=== PATIENT | male | born 1960 | race Caucasian/White ===

== ENCOUNTER 2020-06-30 14:24 | Emergency (ER) | payer OTHER ==
[2020-06-30] MEDS ORDERED: KETOROLAC TROMETHAMINE 30 MG/1 ML VIAL IVPUSH ONE (14:44)
[2020-06-30] MEDS ORDERED: SODIUM CHLORIDE 1,000 ML IV STA (14:44)
[2020-06-30] MEDS ORDERED: METOCLOPRAMIDE HCL INJECTION 10 MG/2 ML VIAL IVPUSH ONE (14:44)
[2020-06-30 14:45] VITALS: BP 124/88; PULSE 67; TEMP 97.6; BMI 27.4
[2020-06-30] MEDS ORDERED: METOCLOPRAMIDE HCL INJECTION 10 MG/2 ML VIAL ONE (15:05)
[2020-06-30] MEDS ORDERED: KETOROLAC TROMETHAMINE 30 MG/1 ML VIAL ONE (15:06)
== END 2020-06-30 17:00 | disposition home or self-care (01) ==
LOC: JERFT 14:24
PROC: 3E033NZ Introduction of Analgesics, Hypnotics, Sedatives into Peripheral Vein, Percutaneous Approach (ICD-10-PCS; principal; 2020-06-30)
PROC: 3E033GC Introduction of Other Therapeutic Substance into Peripheral Vein, Percutaneous Approach (ICD-10-PCS; 2020-06-30)
PROC: 3E0337Z Introduction of Electrolytic and Water Balance Substance into Peripheral Vein, Percutaneous Approach (ICD-10-PCS; 2020-06-30)
DX: R51.9 Headache, unspecified (principal)
CPT/HCPCS: 96361; 96374; 96375; 99285-25

== ENCOUNTER 2020-07-06 18:44 | Emergency (ER) | payer OTHER ==
[2020-07-06 18:49] VITALS: BP 146/93; PULSE 85; TEMP 98.8; BMI 27.4
[2020-07-06] MEDS ORDERED: KETOROLAC TROMETHAMINE 15 MG/ML VIAL IVPUSH ONE (20:02)
[2020-07-06] MEDS ORDERED: LACTATED RINGERS SOLUTION 1000 ML INFUS.BAG IV ONE (20:02)
[2020-07-06] MEDS ORDERED: KETOROLAC TROMETHAMINE 15 MG/ML VIAL ONE (20:33)
[2020-07-06 20:42] LABS: BASO % 0.8 % (0-2.0); EOS % 1.2 % (0-4.5); HEMATOCRIT 47.4 % (35.4-49); HEMOGLOBIN 16.3 GM/dL (11.7-16.9); LYMPH % 21.9 % (8-40); MCH 33.7 pg (25.7-33.7); MCHC 34.4 g/dl (32.0-35.9); MEAN CELL VOLUME 98.1 fl (80-96); MONO % 6.1 % (3.8-10.2); PLATELET COUNT 180 K/MM3 (134-434); RBC 4.83 M/mm3 (4.00-5.60); RDW 12.6 % (11.9-15.9); WHITE BLOOD COUNT 7.3 K/mm3 (4.0-10.0)
[2020-07-06 20:59] LABS: POTASSIUM 4.3 mmol/L (3.5-5.1)
[2020-07-06 21:01] LABS: ALBUMIN 4.2 g/dl (3.4-5.0); BLOOD UREA NITROGEN 11.1 mg/dL (7-18)
[2020-07-06 21:04] LABS: CREATININE 1.1 mg/dL (0.55-1.3)
[2020-07-06 21:06] LABS: BILIRUBIN,TOTAL 0.2 mg/dL (0.2-1); TOT PROT 7.5 g/dl (6.4-8.2)
== END 2020-07-06 21:18 | disposition home or self-care (01) ==
LOC: JER 18:44
PROC: 3E0333Z Introduction of Anti-inflammatory into Peripheral Vein, Percutaneous Approach (ICD-10-PCS; principal; 2020-07-06)
DX: R51.9 Headache, unspecified (principal)
CPT/HCPCS: 36415; 70450-TC; 80053; 85025; 99284-25

== ENCOUNTER 2020-11-01 21:32 | Emergency (ER) | payer OTHER ==
[2020-11-01 21:50] VITALS: BP 129/89; PULSE 85; TEMP 98.7; BMI 25.8
[2020-11-01 23:45] LABS: BASO % 0.2 % (0-2.0); EOS % 1.7 % (0-4.5); HEMATOCRIT 45.7 % (35.4-49); HEMOGLOBIN 15.7 GM/dL (11.7-16.9); LYMPH % 28.5 % (8-40); MCH 33.9 pg (25.7-33.7); MCHC 34.4 g/dl (32.0-35.9); MEAN CELL VOLUME 98.6 fl (80-96); MEAN PLT VOLUME 9.1 fl (7.5-11.1); MONO % 7.8 % (3.8-10.2); NEUT % 61.8 % (42.8-82.8); PLATELET COUNT 177 K/MM3 (134-434); RBC 4.63 M/mm3 (4.00-5.60); RDW 12.7 % (11.9-15.9); WHITE BLOOD COUNT 7.1 K/mm3 (4.0-10.0)
[2020-11-01 23:58] LABS: INR 1.03 (0.83-1.09); PROTHROMBIN TIME (PATIENT) 12.5 SEC (9.7-13.0)
[2020-11-02 00:01] LABS: ACTIVATED PTT 28.5 SECONDS (25.2-36.5)
[2020-11-02] MEDS ORDERED: ONDANSETRON 4 MG/2 ML VIAL IVPUSH ONE (00:03)
[2020-11-02] MEDS ORDERED: FAMOTIDINE 20 MG/50 ML IVPB 20 MG/50 ML MG IVPB ONE ×2 (00:03→00:21)
[2020-11-02] MEDS ORDERED: SODIUM CHLORIDE 1,000 ML IV STA (00:03)
[2020-11-02] MEDS ORDERED: MAG HYDROX/AL HYDROX/SIMETH 30 ML UNIT-DOSE CUP PO ONE (00:03)
[2020-11-02] MEDS ORDERED: ACETAMINOPHEN 1000 MG/100 ML VIAL (NON FORMULARY) IVPB ONE (00:03)
[2020-11-02 00:12] LABS: CHLORIDE 110 mmol/L (98-107); POTASSIUM 4.2 mmol/L (3.5-5.1); SODIUM 143 mmol/L (136-145)
[2020-11-02 00:14] LABS: ANION GAP 6 MMOL/L (8-16); CALCIUM 9.1 mg/dL (8.5-10.1); CO2 27 mmol/L (21-32)
[2020-11-02 00:15] LABS: BLOOD UREA NITROGEN 18.3 mg/dL (7-18); GLUCOSE,RANDOM 101 mg/dL (74-106)
[2020-11-02 00:17] LABS: SGPT/ALT 37 U/L (13-61)
[2020-11-02 00:18] LABS: SGOT/AST 14 U/L (15-37)
[2020-11-02 00:19] LABS: BILIRUBIN,TOTAL 0.3 mg/dL (0.2-1); TOT PROT 7.4 g/dl (6.4-8.2)
[2020-11-02 00:20] LABS: ALK PHOS 76 U/L (45-117)
[2020-11-02] MEDS ORDERED: ACETAMINOPHEN INJECTION 100 ML IVPB ONE (00:20)
[2020-11-02] MEDS ORDERED: MAG HYDROX/AL HYDROX/SIMETH 30 ML UNIT-DOSE CUP ONE (00:21)
[2020-11-02 00:39] LABS: LIPASE 137 U/L (73-393)
[2020-11-02 01:27] LABS: URINE APPEARANCE CLEAR; URINE BILIRUBIN NEGATIVE (NEGATIVE); URINE COLOR YELLOW; URINE GLUCOSE (UA) NEGATIVE (NEGATIVE); URINE KETONE TRACE (NEGATIVE); URINE LEUK ESTERASE NEGATIVE (NEGATIVE); URINE NITRITE NEGATIVE (NEGATIVE); URINE PROTEIN NEGATIVE (NEGATIVE); URINE UROBILINOGEN 0.2 mg/dL (0.2-1.0)
== END 2020-11-02 01:47 | disposition home or self-care (01) ==
LOC: JER 21:32
PROC: 3E033GC Introduction of Other Therapeutic Substance into Peripheral Vein, Percutaneous Approach (ICD-10-PCS; principal; 2020-11-02)
DX: R06.02 Shortness of breath (principal); R07.9 Chest pain, unspecified
CPT/HCPCS: 36415; 71045-TC-FY; 80053; 81003; 82550; 83690; 84484; 85025; 85379; 85610; 85730; 87804; 93005; 93010; 99285-25; C9803; J0131; U0003

== ENCOUNTER 2021-02-02 15:53 | Emergency (ER) | payer OTHER ==
[2021-02-02 16:15] VITALS: BP 130/90; PULSE 88; TEMP 98.4; BMI 25.8
[2021-02-02] MEDS ORDERED: MAG HYDROX/AL HYDROX/SIMETH 30 ML UNIT-DOSE CUP PO ONE (16:53)
[2021-02-02] MEDS ORDERED: SODIUM CHLORIDE 0.9% 500 ML INFUS.BAG IV ONE (16:53)
[2021-02-02] MEDS ORDERED: FAMOTIDINE 20 MG/50 ML IVPB 20 MG/50 ML MG IVPB ONE ×2 (16:53→17:05)
[2021-02-02] MEDS ORDERED: MAG HYDROX/AL HYDROX/SIMETH 30 ML UNIT-DOSE CUP ONE (17:04)
[2021-02-02 17:36] LABS: BASO % 0.3 % (0-2.0); EOS % 1.2 % (0-4.5); HEMATOCRIT 45.1 % (35.4-49); HEMOGLOBIN 15.7 GM/dL (11.7-16.9); LYMPH % 18.4 % (8-40); MCH 33.7 pg (25.7-33.7); MCHC 34.8 g/dl (32.0-35.9); MEAN PLT VOLUME 8.8 fl (7.5-11.1); MONO % 5.7 % (3.8-10.2); NEUT % 74.4 % (42.8-82.8); PLATELET COUNT 178 10^3/uL (134-434); RBC 4.65 M/mm3 (4.00-5.60); RDW 12.8 % (11.9-15.9); WHITE BLOOD COUNT 9.2 K/mm3 (4.0-10.0)
[2021-02-02] MEDS ORDERED: KETOROLAC TROMETHAMINE 30 MG/1 ML VIAL IVPUSH ONE (17:49)
[2021-02-02 17:54] LABS: CHLORIDE 106 mmol/L (98-107); SODIUM 140 mmol/L (136-145)
[2021-02-02 17:56] LABS: BLOOD UREA NITROGEN 13.7 mg/dL (7-18); CALCIUM 9.2 mg/dL (8.5-10.1); GLUCOSE,RANDOM 88 mg/dL (74-106)
[2021-02-02 17:57] LABS: ALBUMIN 3.8 g/dl (3.4-5.0); ANION GAP 7 MMOL/L (8-16); CO2 28 mmol/L (21-32); LIPASE 105 U/L (73-393)
[2021-02-02] MEDS ORDERED: ACETAMINOPHEN 1000 MG/100 ML VIAL (NON FORMULARY) IVPB ONE (17:57)
[2021-02-02 17:59] LABS: CREATININE 0.9 mg/dL (0.55-1.3)
[2021-02-02 18:00] LABS: SGOT/AST 14 U/L (15-37); SGPT/ALT 27 U/L (13-61)
[2021-02-02 18:01] LABS: BILIRUBIN,TOTAL 0.4 mg/dL (0.2-1)
[2021-02-02 18:02] LABS: ALK PHOS 70 U/L (45-117)
[2021-02-02] MEDS ORDERED: ACETAMINOPHEN INJECTION 100 ML IVPB ONE (18:05)
[2021-02-02] MEDS ORDERED: KETOROLAC TROMETHAMINE 30 MG/1 ML VIAL ONE (18:05)
[2021-02-02] MEDS ORDERED: SUCRALFATE 1 GM/10 ML UNIT DOSE CUPS PO STA (18:11)
[2021-02-02] MEDS ORDERED: LIDOCAINE 5% TOPICAL PATCH TP ONE (18:28)
[2021-02-02] MEDS ORDERED: SUCRALFATE 1 GM TABLET (FP) ONE (18:54)
[2021-02-02] MEDS ORDERED: LIDOCAINE 5% TOPICAL PATCH ONE (18:54)
[2021-02-03] MEDS ORDERED: LIDOCAINE PATCH REMOVAL MC SCH (07:00)
== END 2021-02-02 19:30 | disposition home or self-care (01) ==
LOC: JER 15:53
PROC: 3E0333Z Introduction of Anti-inflammatory into Peripheral Vein, Percutaneous Approach (ICD-10-PCS; principal; 2021-02-02)
PROC: 3E033GC Introduction of Other Therapeutic Substance into Peripheral Vein, Percutaneous Approach (ICD-10-PCS; 2021-02-02)
PROC: 3E0333Z Introduction of Anti-inflammatory into Peripheral Vein, Percutaneous Approach (ICD-10-PCS; 2021-02-02)
DX: R10.12 Left upper quadrant pain (principal)
CPT/HCPCS: 36415; 71101-TC-LT-FY; 80053; 82550; 83690; 84484; 85025; 93005; 93010; 99285-25; J0131

== ENCOUNTER 2021-05-06 16:53 | Emergency (ER) | payer OTHER ==
[2021-05-06 17:03] VITALS: TEMP 98.5; BMI 25.8
[2021-05-06] MEDS ORDERED: ACETAMINOPHEN 325 MG TABLET (FP) PO ONE ×2 (17:35→17:52)
[2021-05-06] MEDS ORDERED: METOCLOPRAMIDE HCL 10 MG TABLET (FP) PO ONE ×2 (17:35→17:47)
[2021-05-06] MEDS ORDERED: ACETAMINOPHEN 325 MG TABLET (FP) ONE ×2 (17:46→17:53)
[2021-05-06] MEDS ORDERED: ACETAMINOPHEN 1000 MG/100 ML VIAL (NON FORMULARY) IVPB ONE (17:50)
[2021-05-06] MEDS ORDERED: SODIUM CHLORIDE 1,000 ML IV STA (17:50)
[2021-05-06 18:13] LABS: BASO % 0.3 % (0-2.0); EOS % 0.4 % (0-4.5); HEMATOCRIT 45.2 % (35.4-49); HEMOGLOBIN 15.8 GM/dL (11.7-16.9); LYMPH % 16.2 % (8-40); MCHC 35.1 g/dl (32.0-35.9); MEAN CELL VOLUME 96.9 fl (80-96); MEAN PLT VOLUME 8.8 fl (7.5-11.1); MONO % 4.6 % (3.8-10.2); NEUT % 78.5 % (42.8-82.8); PLATELET COUNT 194 10^3/uL (134-434); RBC 4.66 M/mm3 (4.00-5.60); RDW 13.4 % (11.9-15.9); WHITE BLOOD COUNT 7.6 K/mm3 (4.0-10.0)
[2021-05-06 18:32] LABS: CHLORIDE 105 mmol/L (98-107); SODIUM 137 mmol/L (136-145)
[2021-05-06 18:34] LABS: ALBUMIN 3.9 g/dl (3.4-5.0); ANION GAP 6 MMOL/L (8-16); BLOOD UREA NITROGEN 16.2 mg/dL (7-18); CALCIUM 9.2 mg/dL (8.5-10.1); CO2 26 mmol/L (21-32)
[2021-05-06 18:35] LABS: GLUCOSE,RANDOM 155 mg/dL (74-106)
[2021-05-06 18:37] LABS: CREATININE 1.1 mg/dL (0.55-1.3)
[2021-05-06 18:38] LABS: SGOT/AST 17 U/L (15-37)
[2021-05-06 18:39] LABS: BILIRUBIN,TOTAL 0.4 mg/dL (0.2-1); TOT PROT 7.4 g/dl (6.4-8.2)
[2021-05-06 18:40] LABS: ALK PHOS 73 U/L (45-117)
[2021-05-06 18:48] LABS: SGPT/ALT 32 U/L (13-61)
[2021-05-06 21:50] VITALS: BP 134/94; PULSE 65
== END 2021-05-06 22:14 | disposition home or self-care (01) ==
LOC: JER 16:53
PROC: 3E0337Z Introduction of Electrolytic and Water Balance Substance into Peripheral Vein, Percutaneous Approach (ICD-10-PCS; principal; 2021-05-06)
DX: R00.2 Palpitations (principal); R07.9 Chest pain, unspecified; G44.209 Tension-type headache, unspecified, not intractable
CPT/HCPCS: 36415; 71046-TC-FY; 80053; 82550; 84443; 84484; 85025; 85379; 93005; 93010; 99285-25

== ENCOUNTER 2021-10-17 09:33 | Emergency (ER) | payer OTHER ==
[2021-10-17 09:48] VITALS: BMI 25.8
[2021-10-17] MEDS ORDERED: METOCLOPRAMIDE HCL INJECTION 10 MG/2 ML VIAL IVPUSH ONE (10:24)
[2021-10-17] MEDS ORDERED: KETOROLAC TROMETHAMINE 30 MG/1 ML VIAL IVPB ONE (10:24)
[2021-10-17] MEDS ORDERED: SODIUM CHLORIDE 0.9% 500 ML INFUS.BAG IV ONE (10:24)
[2021-10-17] MEDS ORDERED: KETOROLAC TROMETHAMINE 30 MG/1 ML VIAL ONE (10:30)
[2021-10-17] MEDS ORDERED: METOCLOPRAMIDE HCL INJECTION 10 MG/2 ML VIAL ONE (10:30)
[2021-10-17 10:53] LABS: BASO % 0.5 % (0-2.0); EOS % 0.7 % (0-4.5); HEMATOCRIT 45.1 % (35.4-49); HEMOGLOBIN 15.6 GM/dL (11.7-16.9); LYMPH % 16.8 % (8-40); MCH 33.5 pg (25.7-33.7); MCHC 34.5 g/dl (32.0-35.9); MEAN PLT VOLUME 8.5 fl (7.5-11.1); MONO % 4.6 % (3.8-10.2); NEUT % 77.4 % (42.8-82.8); PLATELET COUNT 196 10^3/uL (134-434); RBC 4.65 M/mm3 (4.00-5.60); RDW 12.6 % (11.9-15.9)
[2021-10-17 11:13] LABS: CALCIUM 9.2 mg/dL (8.5-10.1)
[2021-10-17 11:14] LABS: BLOOD UREA NITROGEN 10.4 mg/dL (7-18)
[2021-10-17 11:17] LABS: CREATININE 0.9 mg/dL (0.55-1.3)
[2021-10-17 11:18] LABS: BILIRUBIN,TOTAL 0.5 mg/dL (0.2-1); TOT PROT 7.2 g/dl (6.4-8.2)
[2021-10-17 11:42] VITALS: TEMP 98
[2021-10-17 13:16] VITALS: BP 128/77; PULSE 82
== END 2021-10-17 13:10 | disposition home or self-care (01) ==
LOC: JER 09:33
PROC: 3E0333Z Introduction of Anti-inflammatory into Peripheral Vein, Percutaneous Approach (ICD-10-PCS; principal; 2021-10-17)
PROC: 3E033GC Introduction of Other Therapeutic Substance into Peripheral Vein, Percutaneous Approach (ICD-10-PCS; 2021-10-17)
DX: G43.809 Other migraine, not intractable, without status migrainosus (principal); R07.89 Other chest pain
CPT/HCPCS: 36415; 71046-TC-FY; 80053; 84484; 85025; 93005; 93010; 99285-25

== ENCOUNTER 2022-05-03 12:59 | Emergency (ER) | payer OTHER ==
[2022-05-03 13:04] VITALS: BMI 25.8
[2022-05-03 14:58] LABS: BASO % 0.3 % (0-2.0); EOS % 0.7 % (0-4.5); HEMATOCRIT 43.4 % (35.4-49); HEMOGLOBIN 14.9 GM/dL (11.7-16.9); LYMPH % 23.1 % (8-40); MCH 33.3 pg (25.7-33.7); MCHC 34.3 g/dl (32.0-35.9); MEAN CELL VOLUME 97.1 fl (80-96); MONO % 6.9 % (3.8-10.2); PLATELET COUNT 172 10^3/uL (134-434); RBC 4.48 M/mm3 (4.00-5.60); WHITE BLOOD COUNT 6.5 K/mm3 (4.0-10.0)
[2022-05-03 15:03] LABS: CHLORIDE 111 mmol/L (98-107); SODIUM 140 mmol/L (136-145)
[2022-05-03 15:05] LABS: ALBUMIN 3.6 g/dl (3.4-5.0); ANION GAP 3 MMOL/L (8-16); CALCIUM 8.9 mg/dL (8.5-10.1); CO2 26 mmol/L (21-32)
[2022-05-03 15:06] LABS: BLOOD UREA NITROGEN 11.9 mg/dL (7-18); GLUCOSE,RANDOM 85 mg/dL (74-106)
[2022-05-03 15:09] LABS: SGOT/AST 16 U/L (15-37); SGPT/ALT 31 U/L (13-61)
[2022-05-03 15:10] LABS: BILIRUBIN,TOTAL 0.3 mg/dL (0.2-1); TOT PROT 6.8 g/dl (6.4-8.2)
[2022-05-03 15:11] LABS: ALK PHOS 67 U/L (45-117)
[2022-05-03 16:08] LABS: PH,URINE 7.5 (5.0-8.0); URINE APPEARANCE CLEAR; URINE BILIRUBIN NEGATIVE (NEGATIVE); URINE COLOR YELLOW; URINE GLUCOSE (UA) NEGATIVE (NEGATIVE); URINE KETONE NEGATIVE (NEGATIVE); URINE LEUK ESTERASE NEGATIVE (NEGATIVE); URINE NITRITE NEGATIVE (NEGATIVE); URINE PROTEIN NEGATIVE (NEGATIVE); URINE UROBILINOGEN 0.2 mg/dL (0.2-1.0)
[2022-05-03 16:27] VITALS: BP 136/88; PULSE 69; RESP 19; TEMP 97.9
== END 2022-05-03 16:28 | disposition home or self-care (01) ==
LOC: JER 12:59
DX: R07.9 Chest pain, unspecified (principal)
CPT/HCPCS: 36415; 71046-TC-FY; 80053; 81003; 84484; 85025; 87086; 93005; 93010; 99285-25

== ENCOUNTER 2023-01-30 18:47 | Emergency (ER) | payer OTHER ==
[2023-01-30 18:53] VITALS: BP 119/78; PULSE 96; RESP 18; TEMP 98.2; BMI 26.6
[2023-01-30] MEDS ORDERED: IBUPROFEN 400 MG TABLET (FP) PO ONE ×2 (19:25→19:42)
[2023-01-30] MEDS ORDERED: ACETAMINOPHEN 325 MG TABLET (FP) PO ONE (19:25)
[2023-01-30] MEDS ORDERED: CYCLOBENZAPRINE HCL 10 MG TABLET (FP) PO ONE (19:25)
[2023-01-30] MEDS ORDERED: LIDOCAINE 5% TOPICAL PATCH TP ONE (19:25)
[2023-01-30] MEDS ORDERED: CYCLOBENZAPRINE HCL 10 MG TABLET (FP) ONE (19:41)
[2023-01-30] MEDS ORDERED: LIDOCAINE 5% TOPICAL PATCH ONE (19:41)
[2023-01-30] MEDS ORDERED: ACETAMINOPHEN 325 MG TABLET (FP) ONE (19:41)
[2023-01-31] MEDS ORDERED: LIDOCAINE PATCH REMOVAL MC SCH (07:30)
== END 2023-01-30 20:50 | disposition home or self-care (01) ==
LOC: JERFT 18:47 → JER 18:47 → JERFT 20:50
DX: M54.2 Cervicalgia (principal)
CPT/HCPCS: 72125-TC; 99284-25

== ENCOUNTER 2023-11-01 10:39 | Emergency (ER) | payer OTHER ==
[2023-11-01 10:47] VITALS: BP 135/87; PULSE 74; RESP 16; TEMP 97.7; BMI 25.8
[2023-11-01] MEDS ORDERED: METOCLOPRAMIDE HCL INJECTION 10 MG/2 ML VIAL ONE (11:37)
[2023-11-01] MEDS: METOCLOPRAMIDE HCL INJECTION 10 MG/2 ML VIAL IVPUSH ONE (11:52)
[2023-11-01 11:58] LABS: BASO % 0.4 % (0-2.0); EOS % 0.7 % (0-4.5); HEMATOCRIT 45.5 % (35.4-49); HEMOGLOBIN 15.6 GM/dL (11.7-16.9); LYMPH % 15.6 % (8-40); MCH 33.4 pg (25.7-33.7); MCHC 34.3 g/dl (32.0-35.9); MEAN CELL VOLUME 97.5 fl (80-96); MEAN PLT VOLUME 8.4 fl (7.5-11.1); MONO % 5.7 % (3.8-10.2); NEUT % 77.6 % (42.8-82.8); PLATELET COUNT 189 10^3/uL (134-434); RBC 4.67 M/mm3 (4.00-5.60); RDW 12.6 % (11.9-15.9); WHITE BLOOD COUNT 8.1 K/mm3 (4.0-10.0)
[2023-11-01 13:02] LABS: POTASSIUM 4.2 mmol/L (3.5-5.1)
[2023-11-01 13:08] LABS: CALCIUM 9.3 mg/dL (8.5-10.1)
[2023-11-01 13:09] LABS: ALBUMIN 3.5 g/dl (3.4-5.0); BLOOD UREA NITROGEN 10.2 mg/dL (7-18)
[2023-11-01 13:12] LABS: CREATININE 0.9 mg/dL (0.55-1.3)
[2023-11-01 13:13] LABS: BILIRUBIN,TOTAL 0.3 mg/dL (0.2-1); TOT PROT 6.5 g/dl (6.4-8.2)
== END 2023-11-01 14:53 | disposition home or self-care (01) ==
LOC: JER 10:39
PROC: 3E033GC Introduction of Other Therapeutic Substance into Peripheral Vein, Percutaneous Approach (ICD-10-PCS; principal; 2023-11-01)
DX: G43.909 Migraine, unspecified, not intractable, without status migrainosus (principal); H53.149 Visual discomfort, unspecified; F40.298 Other specified phobia
CPT/HCPCS: 36415; 70450-TC; 80053; 85025; 99284-25

== ENCOUNTER 2024-03-31 13:53 | Emergency (ER) | payer OTHER ==
[2024-03-31 14:21] VITALS: BP 121/88; PULSE 107; RESP 18; TEMP 98.4; BMI 25.8
[2024-03-31] MEDS ORDERED: ACETAMINOPHEN INJECTION 100 ML IVPB ONE (15:17)
[2024-03-31] MEDS ORDERED: ONDANSETRON *ODT* 4 MG TABLET ONE (15:17)
[2024-03-31] MEDS ORDERED: FAMOTIDINE 10 MG TABLET ONE (15:17)
[2024-03-31 15:38] LABS: BASO % 0.5 % (0-2.0); EOS % 1.3 % (0-4.5); HEMOGLOBIN 16.4 GM/dL (11.7-16.9); LYMPH % 20.2 % (8-40); MCH 33.7 pg (25.7-33.7); MCHC 34.3 g/dl (32.0-35.9); MEAN CELL VOLUME 98.2 fl (80-96); MEAN PLT VOLUME 8.3 fl (7.5-11.1); MONO % 8.9 % (3.8-10.2); NEUT % 69.1 % (42.8-82.8); PLATELET COUNT 195 10^3/uL (134-434); RBC 4.88 M/mm3 (4.00-5.60)
[2024-03-31 16:02] LABS: POTASSIUM 4.4 mmol/L (3.5-5.1)
[2024-03-31] MEDS: SODIUM CHLORIDE 1,000 ML IV STA (16:02)
[2024-03-31] MEDS: ONDANSETRON 4 MG TABLET PO ONE (16:02)
[2024-03-31] MEDS: FAMOTIDINE 10 MG TABLET PO ONE (16:02)
[2024-03-31] MEDS: ACETAMINOPHEN 1000 MG/100 ML BAG IVPB ONE (16:02)
[2024-03-31 16:04] LABS: ALBUMIN 4.1 g/dl (3.4-5.0); BLOOD UREA NITROGEN 10.2 mg/dL (7-18); CALCIUM 9.7 mg/dL (8.5-10.1)
[2024-03-31 16:09] LABS: BILIRUBIN,TOTAL 0.5 mg/dL (0.2-1); TOT PROT 7.3 g/dl (6.4-8.2)
== END 2024-03-31 17:15 | disposition home or self-care (01) ==
LOC: JER 13:53
DX: R19.7 Diarrhea, unspecified (principal); R11.0 Nausea
CPT/HCPCS: 36415; 80053; 83690; 85025; 99284-25; J0131